=== PATIENT | female | born 1960 | race Caucasian/White ===

== ENCOUNTER → 2023-08-23 | Outpatient (CLI) | payer BC ==
--- NOTE | 2023-08-23 11:53 | MR ---
EXAMINATION TYPE: MR knee LT wo con DATE OF EXAM: 08/23/2023 COMPARISON: 07/17/2023 HISTORY: Lt knee pain TECHNIQUE: Multiplanar, multisequence imaging of the left knee is performed without IV contrast. FINDINGS: MEDIAL MENISCUS: A complex tear involving the posterior horn of the medial meniscus. LATERAL MENISCUS: Intrasubstance signal within the posterior horn and body of the lateral meniscus. F avor mucoid degeneration. Subtle linear tear not excluded. CRUCIATE LIGAMENTS: The anterior and posterior cruciate ligaments are intact and unremarkable. COLLATERAL LIGAMENTS: The medial collateral ligament and lateral collateral ligament complex are inta ct. There is a small amount of fluid adjacent to the MCL compatible with grade 1 sprain. No evidence of tear. EXTENSOR MECHANISM: Visualized quadriceps and patellar tendons are intact. EFFUSION: There is a [id number] suprapatellar bursal fluid collection. POPLITEAL CYST: There is a popliteal fossa cyst measuring 1 x 2.2 x 3.2 cm. TRICOMPARTMENT SPACES: Degenerative marrow changes of the patella with thinning in the patellar carti joselo compatible with chondromalacia. Mild narrowing of the joint space. Marginal spurring of the tric ompartment joint space. CARTILAGE: There are multiple focal areas of abnormal signal involving the medial patellar cartilage compatible with grade III chondromalacia. BONE MARROW SIGNAL: Nonspecific marrow changes involving the patella are likely reactive and related to the arthritic changes. IMPRESSION: 1. 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 2. Complex tear posterior horn medial meniscus. 3. Findings involving the posterior horn and body of the lateral meniscus are favored to represent mu coid degeneration or a linear tear 4. Grade 1 MCL sprain with no evidence of tear 5. Small popliteal fossa cyst measuring 1 x 2.2 x 3.2 cm
== END | disposition home or self-care (01) ==
LOC: RADMRIMAIN 11:08
PROVIDERS: ATTEND Orthopaedic Surgery
DX: M17.12 Unilateral primary osteoarthritis, left knee (principal); M23.322 Other meniscus derangements, posterior horn of medial meniscus, left knee; M22.42 Chondromalacia patellae, left knee; M23.632 Other spontaneous disruption of medial collateral ligament of left knee; M71.22 Synovial cyst of popliteal space [Baker], left knee

== ENCOUNTER 2023-11-08 08:00 | Day surgery (SDC) | payer BC ==
[2023-11-08] MEDS ORDERED: ONDANSETRON 4 MG/2 ML VIAL ONE (08:17)
[2023-11-08] MEDS ORDERED: DEXAMETHASONE SOD PHOSPHATE 4 MG/ML 1 ML VIAL ONE (08:17)
[2023-11-08] MEDS ORDERED: EPINEPHrine (PF) 1 MG/ML AMP ONE (08:20)
[2023-11-08] MEDS ORDERED: SODIUM CHLORIDE 0.9% IRRIG 3,000 ML BAG IRRIGATION ONE (08:20)
[2023-11-08] MEDS ORDERED: ceFAZolin 1,000 MG VIAL ONE (08:20)
[2023-11-08] MEDS ORDERED: LACTATED RINGERS 1,000 ML BAG ONE (08:20)
[2023-11-08] MEDS ORDERED: KETOROLAC 15 MG/ML 1 ML VIAL ONE (09:18)
[2023-11-08] MEDS ORDERED: MIDAZOLAM 2 MG/2 ML VIAL ONE ×2 (09:18→10:39)
[2023-11-08] MEDS ORDERED: HYDROmorphone (PF) 1 MG/ML ONE (09:18)
[2023-11-08] MEDS ORDERED: LIDOCAINE 1% INJ 10MG/ML (20 ML MDV) ONE (09:18)
[2023-11-08] MEDS ORDERED: fentaNYL (PF) 50 MCG/ML 2 ML AMP ONE (09:18)
[2023-11-08] MEDS ORDERED: PROPOFOL 10 MG/ML 20 ML VIAL IV ONE (09:18)
[2023-11-08] MEDS ORDERED: HYDROmorphone 0.5 MG/0.5 ML SYRINGE ONE (10:25)
--- NOTE | 2023-11-15 15:55 | OP ---
OPERATIVE REPORT DATE OF SERVICE : 11/08/2023 PREOPERATIVE DIAGNOSIS: Left knee internal derangement. POSTOPERATIVE DIAGNOSIS: Left knee posterior medial meniscal tear along with grade 4 chondral injury, lateral tibial plateau. PROCEDURES PERFORMED: Left knee arthroscopic partial medial meniscectomy and lateral tibial chondrectomy. ANESTHESIA: General. PREP: DuraPrep. INDICATION FOR PROCEDURE: The patient is a 63-year-old female, who presents with progressive left knee pain after previous injury despite attempted conservative measures. A discussion of the risks and benefits of operative intervention versus continued conservative measures was made with the patient. She opted to proceed with surgery. Operative risks to include infection, neurovascular injury, development of blood clot, possible incomplete resolution of symptoms, possible worsening of symptoms, and need for subsequent procedures were discussed. Informed consent was obtained. DESCRIPTION OF PROCEDURE: The patient was brought to the operating room, and after induction of general anesthesia, I examined the left knee. Collaterals were stable. Everardo was negative, posterior drawer was negative. The left lower extremity was prepped and draped in normal fashion. A superolateral portal was made just lateral to the patella through a 3 mm skin incision, and this was used for outflow. A moderate effusion was encountered. A lateral portal was made just above the joint line, lateral to the patellar tendon through a 5 mm skin incision. Diagnostic arthroscopy was performed. A medial portal was made through a similar incision medial to the patellar tendon above the joint line. On inspection of medial compartment, there was a complex tear involving the posterior horn of the medial meniscus involving the root in the white-red junction. This was not amenable to repair. This was debrided back to a stable base with straight baskets and a motorized shaver. The remaining medial meniscus was stable and intact. Grade 2 to 3 chondral changes were noted diffusely involving the medial femoral condyle. No loose cartilage fragments were noted. On inspection of the notch, the anterior cruciate ligament appeared to be intact. On inspection of the lateral compartment, no significant meniscal pathology was noted. An 8 x 8 mm grade 4 chondral defect was noted involving the medial anterior aspect of the lateral tibial plateau. There was a loose chondral flap debrided back to a stable base with a motorized shaver. On inspection of the patellofemoral articulation, there was chondromalacia, however, no loose chondral fragments. The gutters were cleared of debris. The knee was then thoroughly irrigated. The portals were closed with Steri-Strips. A sterile dressing was applied in addition to a compression stocking. The patient was awoken from general anesthesia and transferred to the recovery room in good condition. Blood loss was estimated at 10 mL. No complications were incurred. The sponge and needle counts were correct at the end of the case. MMODL / IJN: [id number] /
== END 2023-11-08 12:00 ==
LOC: OR 08:00
PROVIDERS: ATTEND Orthopaedic Surgery
DX: S83.242A Other tear of medial meniscus, current injury, left knee, initial encounter (principal); M22.42 Chondromalacia patellae, left knee; I10 Essential (primary) hypertension; Z87.891 Personal history of nicotine dependence; M19.90 Unspecified osteoarthritis, unspecified site; H93.19 Tinnitus, unspecified ear; X58.XXXA Exposure to other specified factors, initial encounter; Z79.82 Long term (current) use of aspirin; Z91.048 Other nonmedicinal substance allergy status; Z79.899 Other long term (current) drug therapy